=== PATIENT | female | born 1950 | race Caucasian/White ===

== ENCOUNTER 2021-01-14 07:08 | Day surgery (SDC) | payer MEDICARE, OTHER ==
[2021-01-14] MEDS ORDERED: Propofol 200 MG/20 ML SDV IV ONE (07:09)
[2021-01-14] MEDS ORDERED: Lidocaine 2% 5 ML SDV INJECT ONE (07:09)
[2021-01-14] MEDS ORDERED: Ondansetron 4 MG/2 ML SDV IVPUSH ONE (07:09)
[2021-01-14] MEDS ORDERED: Sodium Chloride 0.9% 10 ML Syringe FLUSH PRN (07:15)
[2021-01-14] MEDS ORDERED: Lactated Ringers 1,000 ML IV SCH (07:15)
--- NOTE | 2021-01-14 09:19 | PCM.HPR ---
H & P Addendum review - H & P Addendum Review Date of Original H & P: 01/01/21 Date Reviewed: 01/14/21 Time Reviewed: 08:45 Patient was Examined: No Changes
--- NOTE | 2021-01-14 09:20 | PCM.OPNOTE ---
- General Post-Op/Procedure Note Date of Surgery/Procedure: 01/14/21 Operative Procedure(s): Incomplete Colonoscopy Findings: Severe Sig tics 2 sig polyps Pre Op Diagnosis: Screening Post-Op Diagnosis: Same Anesthesia Technique: MAC Primary Surgeon: Willy Nolan Anesthesia Provider: Marifer Aparicio EBL in mLs: 0 Complications: None Condition: Good
[2021-01-14 11:46] VITALS: BP 177/92; PULSE 86
--- NOTE | 2021-01-14 12:56 | OR ---
DATE OF OPERATION: 01/14/2021 SURGEON: Willy Nolan MD PREOPERATIVE DIAGNOSIS: Colon screening. POSTOPERATIVE DIAGNOSES: 1. Severe sigmoid diverticulosis. 2. Sigmoid colon polyps. PROCEDURE: Incomplete colonoscopy to the sigmoid colon with polypectomy x2. ANESTHESIA: IV sedation. DESCRIPTION OF PROCEDURE: The patient was brought to the procedure room where she was placed on her left side and IV sedation administered. Digital rectal exam was performed which was normal. The colonoscope was inserted and advanced into a very tortuous sigmoid colon with multiple diverticula present. I was able to get to approximately 30 cm. I then changed her to the supine position and provided pressure on the abdomen and was able to advance slightly further, but was unable to get through the sigmoid colon. Upon withdrawing the scope, she had 2 polyps in her sigmoid colon located at 15 and 20 cm from the anal verge. These measured 6 to 8 mm in diameter and were pedunculated and removed with a cautery snare and retrieved in the polyp trap. Rectum was normal and retroflexion was normal. Air was removed and the scope withdrawn. The patient tolerated the procedure well and returned to Recovery in stable condition. I will offer her barium enema to evaluate the remaining colon. /[id number] RAMYA/LUCAS
== END 2021-01-14 10:35 | disposition home or self-care (01) ==
LOC: FB.SDS 07:08
PROVIDERS: ATTEND Surgery
DX: Z12.11 Encounter for screening for malignant neoplasm of colon (principal); K63.5 Polyp of colon; K57.30 Diverticulosis of large intestine without perforation or abscess without bleeding; E78.5 Hyperlipidemia, unspecified; I10 Essential (primary) hypertension; E11.9 Type 2 diabetes mellitus without complications; Z79.899 Other long term (current) drug therapy; Z88.8 Allergy status to other drugs, medicaments and biological substances
CPT/HCPCS: 00811-QZ; 00812-QZ; 88305; J2405; J2704; J7120

== ENCOUNTER 2021-04-24 10:37 | Inpatient (IN) | payer MEDICARE, OTHER ==
[2021-04-24] MEDS ORDERED: oxyCODONE 5 MG Tab PO PRN (13:22)
--- NOTE | 2021-04-24 13:29 | PCM.HP.2 ---
H&P History of Present Illness - General Date of Service: 04/24/21 Admit Problem/Dx: Admission Diagnosis/Problem Admission Diagnosis/Problem Weakness Source of Information: Patient, Old Records, Provider - History of Present Illness Initial Comments - Free Text/Narative: Paola presents for swing bed admission from [facility], she had been admitted there for large bowel obstruction in proximal sigmoid colon on 04/14, they attempted colonoscopy to open up obstruction but was unsuccessful. She underwent sigmoidectomy, end colostomy on 04/17, she is due to have trixie removed on 04/30 at [address] She has been having loose stools and surgery increased her fiber. She has been very weak. She was in ICU, required Levophed, which was discontinued on 04/20, had art line removed on 04/20 and CVC removed on 04/22. She has had nonproductive cough since her admission to [place], no fevers. She was not discharged on any antibiotics. She also was not discharged on anticoagulation. She was not receptive to ostomy cares teaching in [place] so will need education here. Discharged on Oxycodone as needed and Tylenol scheduled for pain. She has pitting edema in her legs, pulses are marked with skin marker. Having pain over midline incision/stoma. - Related Data Allergies/Adverse Reactions: Allergies Allergy/AdvReac Type Severity Reaction Status Date / Time amoxicillin [From Augmentin] Allergy Hallucinati Verified 01/14/21 08:02 ons aspirin Allergy Other Verified 01/14/21 08:02 clavulanic acid Allergy Hallucinati Verified 01/14/21 08:02 [From Augmentin] ons Home Medications: Home Meds Cholecalciferol (Vitamin D3) [Vitamin D3] 1,000 unit PO DAILY 11/20/15 [History] atorvaSTATin [Lipitor] 20 mg PO DAILY 11/20/15 [History] DULoxetine [Cymbalta] 30 mg PO BEDTIME 01/13/21 [History] metFORMIN [Glucophage XR] 500 mg PO DAILY 01/13/21 [History] Acetaminophen [Tylenol Extra Strength] 1,000 mg PO Q8H 04/24/21 [History] Calcium Phosphate Trib/Vit D3 [Calcium Gummies] 2 tab CHEW DAILY 04/24/21 [History] Melatonin 3 mg PO BEDTIME 04/24/21 [History] Multivitamin 2 tab PO DAILY 04/24/21 [History] QUEtiapine [SEROquel] 12.5 mg PO BEDTIME 04/24/21 [History] oxyCODONE 5 mg PO Q6H PRN 04/24/21 [History] Past Medical History HEENT History: Reports: Other (See Below) Other HEENT History: WEARS DENTURES Cardiovascular History: Reports: High Cholesterol, Other (See Below) Other Cardiovascular History: VARICOSE VEIN BILAT LOWER EXTREMITIES Respiratory History: Reports: None Gastrointestinal History: Reports: Diverticulosis, Other (See Below) Genitourinary History: Reports: Other (See Below) Other Genitourinary History: MARCELINA (ACUTE KIDNEY INJURY) Musculoskeletal History: Reports: Osteoarthritis, Other (See Below) Other Musculoskeletal History: CHRONIC PAIN RT KNEE Neurological History: Reports: None Psychiatric History: Reports: Depression Endocrine/Metabolic History: Reports: Obesity/BMI 30+ Hematologic History: Reports: None Immunologic History: Reports: None Oncologic (Cancer) History: Reports: None Dermatologic History: Reports: None - Past Surgical History GI Surgical History: Reports: Appendectomy, Colonoscopy Female Surgical History: Reports: None Social & Family History - Caffeine Use Caffeine Use: Reports: Coffee H&P Review of Systems - Review of Systems: Review Of Systems: See Below General: Reports: Weakness, Fatigue. Denies: Fever, Chills HEENT: Reports: No Symptoms Pulmonary: Reports: Cough. Denies: Shortness of Breath Cardiovascular: Reports: Dyspnea on Exertion, Edema. Denies: Chest Pain Gastrointestinal: Reports: Abdominal Pain, Diarrhea. Denies: Nausea, Vomiting Genitourinary: Reports: No Symptoms Musculoskeletal: Reports: No Symptoms Skin: Reports: Other (cool feet) Psychiatric: Reports: No Symptoms Neurological: Reports: No Symptoms Hematologic/Lymphatic: Reports: No Symptoms Exam - Exam Exam: See Below - Exam General: Alert, Oriented, Cooperative HEENT: PERRLA, EOMI, Hearing Intact Neck: Trachea Midline Lungs: Clear to Auscultation, Normal Respiratory Effort, Decreased Breath Sounds (bibasilar). No: Crackles, Wheezing Cardiovascular: Regular Rate, Regular Rhythm GI/Abdominal Exam: Normal Bowel Sounds, Soft, No Distention, Guarding, Tender (along incision & stoma) (Female) Exam: Deferred Rectal (Female) Exam: Normal Exam, Other (skin tag on right buttock) Back Exam: Normal Inspection Extremities: Pedal Edema (3+ BLE, pallor/cyanosis to bilateral feet, pedal arteries marked with skin marker B;) Peripheral Pulses: 1+: Posterior Tibial (L), Posterior Tibial (R), Dorsalis Pedis (L), Dorsalis Pedis (R), 2+: Brachial (R), Radial (L) Skin: Warm, Dry, Intact, Cool (feet: dusky) Neurological: Cranial Nerves Intact, Normal Speech, Normal Tone *Q Meaningful Use (ADM) - VTE Risk Assess *Q Each Risk Factor Represents 1 Point: History of prior major surgery less than 1 month Total Score 1 Point Risk Factors: 1 Each Risk Factor Represents 2 Points: Age 60 - 74 Years Total Score 2 Point Risk Factors: 2 Each Risk Factor Represents 3 Points: None Total Score 3 Point Risk Factors: 0 Each Risk Factor Represents 5 Points: None Total Score 5 Point Risk Factors: 0 Venous Thromboembolism Risk Factor Score *Q: 3 - Problem List (1) Weakness SNOMED Code(s): 48415912 ICD Code: R53.1 - WEAKNESS Status: Acute Current Visit: Yes (2) History of open sigmoidectomy SNOMED Code(s): 697773903 ICD Code: Z98.890 - OTHER SPECIFIED POSTPROCEDURAL STATES; Z90.49 - ACQUIRED ABSENCE OF OTHER SPECIFIED PARTS OF DIGESTIVE TRACT Status: Acute Current Visit: Yes Onset Date: ~04/17/21 (3) S/P colostomy SNOMED Code(s): 633267600, 447836089, 037843722 ICD Code: Z93.3 - COLOSTOMY STATUS Status: Acute Current Visit: Yes Onset Date: ~04/17/21 (4) History of obstruction of large intestine SNOMED Code(s): 205658308283775277 ICD Code: Z87.19 - PERSONAL HISTORY OF OTHER DISEASES OF THE DIGESTIVE SYSTEM Status: Acute Current Visit: Yes Onset Date: ~04/14/21 (5) Hyperlipidemia SNOMED Code(s): 60515436 ICD Code: E78.5 - HYPERLIPIDEMIA, UNSPECIFIED Status: Chronic Current Visit: Yes (6) Depression SNOMED Code(s): 50672972 ICD Code: F32.9 - MAJOR DEPRESSIVE DISORDER, SINGLE EPISODE, UNSPECIFIED Status: Chronic Current Visit: Yes (7) Insomnia SNOMED Code(s): 523295656 ICD Code: G47.00 - INSOMNIA, UNSPECIFIED Status: Chronic Current Visit: Yes (8) History of diverticulitis SNOMED Code(s): 710496391841063 ICD Code: Z87.19 - PERSONAL HISTORY OF OTHER DISEASES OF THE DIGESTIVE SYSTEM Status: Chronic Current Visit: Yes (9) Diabetes SNOMED Code(s): 54117886 ICD Code: E11.9 - TYPE 2 DIABETES MELLITUS WITHOUT COMPLICATIONS Status: Chronic Current Visit: Yes Problem List Initiated/Reviewed/Updated: Yes Orders Last 24hrs: Active Orders 24 hr Category Date Time Status Patient Status [ADT] Routine ADT 04/24/21 13:05 Active Height and Weight [RC] WEEKLY Care 04/24/21 13:05 Active Ostomy Assessment [RC] QSHIFT Care 04/24/21 13:10 Active Oxygen Therapy [RC] PRN Care 04/24/21 13:05 Active Up With Assistance [RC] ASDIRECTED Care 04/24/21 13:05 Active Up to Chair [RC] ASDIRECTED Care 04/24/21 13:05 Active VTE/DVT Education [RC] Per Unit Routine Care 04/24/21 13:05 Active Vital Signs [RC] PER UNIT ROUTINE Care 04/24/21 13:05 Active OT Evaluation and Treatment [CONS] Routine Cons 04/24/21 13:05 Active PT Evaluation and Treatment [CONS] Routine Cons 04/24/21 13:05 Active Regular Diet [DIET] Diet 04/24/21 Lunch Active Acetaminophen [Tylenol Extra Strength] Med 04/24/21 13:30 Ordered 1,000 mg PO Q8H Calcium Phosphate Trib/Vit D3 [Calcium Gummies] Med 04/25/21 09:00 Ordered 2 tab CHEW DAILY Cholecalciferol (Vitamin D3) [Vitamin D3] Med 04/25/21 09:00 Ordered 1,000 unit PO DAILY DULoxetine [Cymbalta] Med 04/24/21 21:00 Ordered 30 mg PO BEDTIME Melatonin Med 04/24/21 21:00 Ordered 3 mg PO BEDTIME Multivitamin [Multivitamin] Med 04/25/21 09:00 Ordered 2 tab PO DAILY QUEtiapine [SEROqueL] Med 04/24/21 21:00 Ordered 12.5 mg PO BEDTIME atorvaSTATin [Lipitor] Med 04/25/21 09:00 Ordered 20 mg PO DAILY metFORMIN [Glucophage XR] Med 04/25/21 09:00 Ordered 500 mg PO DAILY oxyCODONE Med 04/24/21 13:22 Ordered 5 mg PO Q6H PRN Resuscitation Status Routine Resus Stat 04/24/21 13:05 Ordered Assessment/Plan Comment:: 1. Admit to swing bed for rehab services s/p sigmoidectomy & end colostomy. 2. Weakness: PT/OT evaluate & treat. 3. S/p sigmoidectomy & colostomy: Tylenol 1000 mg po q8h and Oxycodone 5 mg po q6h as needed. Ostomy cares teaching. Trixie removed on 04/30/21 appt at 1215 at [place] [address] surgical clinic. Dietary consult for fiber intake. 4. DM: continue Metformin, on regular diet in [place]. 5. Peripheral edema: BHARATH wraps on during day and off at night. 6. Diet: Regular, dietary consulted. 7. Activity: up with assistance & up to chair. 8. CODE STATUS: FULL. 9. Discharge planning: once meets therapy goals. - Mortality Measure Prognosis:: Poor
[2021-04-24] MEDS: Acetaminophen 500 MG Tab PO SCH ×2 (15:03→21:04)
[2021-04-24] MEDS: Melatonin 3 MG Tab PO SCH (21:04)
[2021-04-24] MEDS: DULoxetine 30 MG Cap PO SCH (21:04)
[2021-04-24] MEDS: QUEtiapine 25 MG Tab PO SCH (21:04)
[2021-04-25] MEDS: Acetaminophen 500 MG Tab PO SCH ×3 (06:00→23:02)
[2021-04-25] MEDS ORDERED: Cholecalciferol (Vitamin D3) 25 MCG Tab PO SCH (09:00)
[2021-04-25] MEDS ORDERED: atorvaSTATin 20 MG Tab PO SCH (09:00)
[2021-04-25] MEDS ORDERED: metFORMIN 500 MG Tab.ER PO SCH (09:00)
[2021-04-25] MEDS ORDERED: Multivitamin Tab PO SCH (09:00)
[2021-04-25] MEDS ORDERED: Calcium Carbonate 500 MG Tablet PO SCH (09:00)
[2021-04-25] MEDS ORDERED: Enoxaparin 40 MG/0.4 ML Syringe SUBCUT SCH (10:00)
[2021-04-25] MEDS ORDERED: Ciprofloxacin in D5W 400 MG in Premix Bag 1 BAG IV ONE ×2 (19:31)
[2021-04-25] MEDS ORDERED: metroNIDAZOLE/Normal Saline 500 MG in Premix Bag 1 BAG IV ONE (19:35)
[2021-04-25] MEDS ORDERED: Iopamidol 755 Mg/ML 100 ML Bottle IV ONE (19:47)
--- NOTE | 2021-04-25 19:55 | PCM.DCSUM1 ---
Discharge Summary - Hospital Course Brief History: 70-year-old lady came to swing bed yesterday after distal colon/proximal rectum resection approximately 04/17/2021. She had a mildly elevated white blood cell count this morning but was feeling well. Over the course the day she had minimal output from her colostomy. She was feeling worse tonight and her white blood cell count elevated to greater than 17. Lactic acid 2.5. Focused sepsis exam negative. Vital signs: Blood pressure 149/93; temperature 97.7 F; pulse rate 108; respiratory rate 18; oxygen saturation 95% on room air. Contacted surgery at [place] and they accepted transfer of patient for further evaluation and possible treatment. Patient will have abdominal/pelvic CT with contrast prior to discharge/transfer to [facility]. - Discharge Data Discharge Date: 04/25/21 Discharge Disposition: DC/Tfer to Acute Hospital 02 Condition: Fair - Referral to [facility] Primary Care Physician: Kai Serna PA-C - Discharge Diagnosis/Problem(s) (1) History of obstruction of large intestine SNOMED Code(s): 126235214249637227 ICD Code: Z87.19 - PERSONAL HISTORY OF OTHER DISEASES OF THE DIGESTIVE SYSTEM Status: Acute Current Visit: Yes Onset Date: ~04/14/21 (2) History of open sigmoidectomy SNOMED Code(s): 252833928 ICD Code: Z98.890 - OTHER SPECIFIED POSTPROCEDURAL STATES; Z90.49 - ACQUIRED ABSENCE OF OTHER SPECIFIED PARTS OF DIGESTIVE TRACT Status: Acute Current Visit: Yes Onset Date: ~04/17/21 (3) S/P colostomy SNOMED Code(s): 389006532, 598952903, 262601343 ICD Code: Z93.3 - COLOSTOMY STATUS Status: Acute Current Visit: Yes Onset Date: ~04/17/21 (4) Sepsis SNOMED Code(s): 66503708 ICD Code: A41.9 - SEPSIS, UNSPECIFIED ORGANISM Status: Acute Current Visit: Yes (5) Weakness SNOMED Code(s): 82645007 ICD Code: R53.1 - WEAKNESS Status: Acute Current Visit: Yes (6) Depression SNOMED Code(s): 83327362 ICD Code: F32.9 - MAJOR DEPRESSIVE DISORDER, SINGLE EPISODE, UNSPECIFIED Status: Chronic Current Visit: Yes (7) Diabetes SNOMED Code(s): 21669734 ICD Code: E11.9 - TYPE 2 DIABETES MELLITUS WITHOUT COMPLICATIONS Status: Chronic Current Visit: Yes (8) History of diverticulitis SNOMED Code(s): 992033129375341 ICD Code: Z87.19 - PERSONAL HISTORY OF OTHER DISEASES OF THE DIGESTIVE SYSTEM Status: Chronic Current Visit: Yes (9) Hyperlipidemia SNOMED Code(s): 95796273 ICD Code: E78.5 - HYPERLIPIDEMIA, UNSPECIFIED Status: Chronic Current Visit: Yes (10) Insomnia SNOMED Code(s): 630443257 ICD Code: G47.00 - INSOMNIA, UNSPECIFIED Status: Chronic Current Visit: Yes - Patient Summary/Data Consults: Consultations 04/24/21 13:05 OT Evaluation and Treatment [CONS] Routine Please Evaluate and Treat. OT Reason for Consult: ADL's This query below is only for informational purposes and is not editable. PT Evaluation and Treatment [CONS] Routine Please Evaluate and Treat. PT Reason for Consult: Strengthening This query below is only for informational purposes and is not editable. 04/24/21 13:42 Consult to Dietary [Consult to Title Coordinator] [CONS] Routine Comment: Physician Instructions: Quantity: Reason for Consult: s/p sigmoidectomy and end colostomy - Discharge Plan *PRESCRIPTION DRUG MONITORING PROGRAM REVIEWED*: Not Applicable *COPY OF PRESCRIPTION DRUG MONITORING REPORT IN PATIENT [place]: Not Applicable Home Medications: Home Meds Cholecalciferol (Vitamin D3) [Vitamin D3] 1,000 unit PO DAILY 11/20/15 [History] atorvaSTATin [Lipitor] 20 mg PO DAILY 11/20/15 [History] DULoxetine [Cymbalta] 30 mg PO BEDTIME 01/13/21 [History] metFORMIN [Glucophage XR] 500 mg PO DAILY 01/13/21 [History] Acetaminophen [Tylenol Extra Strength] 1,000 mg PO Q8H 04/24/21 [History] Calcium Phosphate Trib/Vit D3 [Calcium Gummies] 2 tab CHEW DAILY 04/24/21 [History] Melatonin 3 mg PO BEDTIME 04/24/21 [History] Multivitamin 2 tab PO DAILY 04/24/21 [History] QUEtiapine [SEROquel] 12.5 mg PO BEDTIME 04/24/21 [History] oxyCODONE 5 mg PO Q6H PRN 04/24/21 [History] Patient Handouts: Colostomy Surgery, Adult, Care After, Fall Prevention in Hospitals, Adult, Venous Thromboembolism Prevention - Discharge Summary/Plan Comment DC Time >30 min.: Yes Total # of Minutes for Discharge Time: 50 Discharge Summary/Plan Comment: Patient will be transferred to [facility] for further evaluation and possible treatment by surgery. Patient was given CT abdomen/pelvis with contrast, ciprofloxacin 400 mg IV, Flagyl 500 mg IV. Blood cultures x2 have been started prior to administration of antibiotics. CBC, CMP, lactic acid also completed. These note that patient was given IV contrast for abdominal/pelvic CT. Please hold Metformin for 48 hours. - General Info Date of Service: 04/25/21 Admission Dx/Problem (Free Text: Admission Diagnosis/Problem Admission Diagnosis/Problem Weakness Subjective Update: Patient states that she is not feeling well. She had difficulty speaking and was not able to articulate much more than abdominal pain Functional Status: Reports: New Symptoms - Review of Systems General: Reports: Weakness HEENT: Reports: No Symptoms Pulmonary: Reports: No Symptoms Cardiovascular: Reports: No Symptoms Gastrointestinal: Reports: Abdominal Pain, Decreased Appetite Genitourinary: Reports: No Symptoms Musculoskeletal: Reports: No Symptoms Skin: Reports: No Symptoms Neurological: Reports: No Symptoms Psychiatric: Reports: No Symptoms - Patient Data Vitals - Most Recent: Last Vital Signs Temp 37.0 C 04/25/21 08:35 Pulse 115 H 04/25/21 08:35 Resp 20 04/25/21 08:35 BP 130/84 04/25/21 08:35 Pulse Ox 95 04/25/21 08:35 Weight - Most Recent: 78.953 kg Lab Results - Last 24 hrs: Laboratory Results - last 24 hr 04/25/21 04/25/21 04/25/21 Range/Units 10:30 10:30 18:50 WBC 13.3 H (3.0-10.3) x10-3/uL Corrected WBC 12.3 H (4.5-12.0) X10(3) RBC 3.34 L (3.60-5.20) x10(6)uL Hgb 10.6 L (11.4-15.5) g/dL Hct 32.0 L (34.2-48.2) % MCV 95.8 (76.7-100.5) fL MCH 31.8 (23.9-33.9) pg MCHC 33.2 (31.9-34.8) g/dL RDW 15.6 (12.3-16.5) % Plt Count 252 (151-488) x10(3)uL MPV 8.0 (7.1-12.4) fL Add Manual Diff Yes Neutrophils % (Manual) 79 (46-82) % Lymphocytes % (Manual) 18 (13-37) % Monocytes % (Manual) 3 L (4-12) % Nucleated RBCs 8 H (0-0) /100WBC Hypersegmented Neuts Few Anisocytosis Few Macrocytosis Few Sodium 149 H (135-145) mmol/L Potassium 4.1 (3.5-5.3) mmol/L Chloride 116 H* (100-110) mmol/L Carbon Dioxide 22 (21-32) mmol/L BUN 23 H (7-18) mg/dL Creatinine 1.0 (0.55-1.02) mg/dL Est Cr Clr Drug Dosing 44.56 mL/min Estimated GFR (MDRD) 55 L (>60) BUN/Creatinine Ratio 23.0 H (9-20) Glucose 136 H (80-116) mg/dL Lactic Acid 2.5 H* (0.4-2.0) mmol/L Calcium 8.6 (8.6-10.2) mg/dL 04/25/21 Range/Units 18:50 WBC 17.9 H (3.0-10.3) x10-3/uL Corrected WBC 16.0 H (4.5-12.0) X10(3) RBC 3.59 L (3.60-5.20) x10(6)uL Hgb 11.2 L (11.4-15.5) g/dL Hct 34.8 (34.2-48.2) % MCV 96.9 (76.7-100.5) fL MCH 31.3 (23.9-33.9) pg MCHC 32.3 (31.9-34.8) g/dL RDW 15.7 (12.3-16.5) % Plt Count 299 (151-488) x10(3)uL MPV 7.8 (7.1-12.4) fL Add Manual Diff Yes Neutrophils % (Manual) 76 (46-82) % Lymphocytes % (Manual) 22 (13-37) % Monocytes % (Manual) 2 L (4-12) % Nucleated RBCs 6 H (0-0) /100WBC Hypersegmented Neuts Anisocytosis Few Macrocytosis Sodium (135-145) mmol/L Potassium (3.5-5.3) mmol/L Chloride (100-110) mmol/L Carbon Dioxide (21-32) mmol/L BUN (7-18) mg/dL Creatinine (0.55-1.02) mg/dL Est Cr Clr Drug Dosing mL/min Estimated GFR (MDRD) (>60) BUN/Creatinine Ratio (9-20) Glucose (80-116) mg/dL Lactic Acid (0.4-2.0) mmol/L Calcium (8.6-10.2) mg/dL Med Orders - Current: Current Medications Acetaminophen (Acetaminophen 500 Mg Tab) 1,000 mg PO Q8H [facility] Last Admin: 04/25/21 13:32 Dose: 1,000 mg Documented by: Atorvastatin Calcium (Atorvastatin 20 Mg Tab) 20 mg PO DAILY [facility] Last Admin: 04/25/21 08:32 Dose: 20 mg Documented by: Calcium Carbonate/Glycine (Calcium Carbonate 500 Mg Tab.Chew) 1,000 mg PO DAILY [facility] Cholecalciferol (Cholecalciferol (Vitamin D3) 25 Mcg Tab) 25 mcg PO DAILY [facility] Last Admin: 04/25/21 08:33 Dose: 25 mcg Documented by: Duloxetine HCl (Duloxetine 30 Mg Cap) 30 mg PO BEDTIME [facility] Last Admin: 04/24/21 21:04 Dose: 30 mg Documented by: Enoxaparin Sodium (Enoxaparin 40 Mg/0.4 Ml Syringe) 40 mg SUBCUT DAILY [facility] Last Admin: 04/25/21 10:57 Dose: 40 mg Documented by: Ciprofloxacin/Dextrose 400 mg/ (Premix) 200 mls @ 200 mls/hr IV ONETIME ONE Stop: 04/25/21 20:30 Metronidazole 500 mg/ Premix 100 mls @ 100 mls/hr IV ONETIME ONE Stop: 04/25/21 20:34 Melatonin (Melatonin 3 Mg Tab) 3 mg PO BEDTIME [facility] Last Admin: 04/24/21 21:04 Dose: 3 mg Documented by: Metformin HCl (Metformin 500 Mg Tab) 500 mg PO WITHBREAKFAST [facility] Multivitamins/Minerals/Vitamin C (Multivitamin Tab) 2 tab PO DAILY [facility] Last Admin: 04/25/21 08:32 Dose: 2 tab Documented by: Oxycodone HCl (Oxycodone 5 Mg Tab) 5 mg PO Q6H PRN PRN Reason: MODERATE PAIN Last Admin: 04/25/21 16:50 Dose: 5 mg Documented by: Quetiapine Fumarate (Quetiapine 25 Mg Tab) 12.5 mg PO BEDTIME [facility] Last Admin: 04/24/21 21:04 Dose: 12.5 mg Documented by: Discontinued Medications Calcium Carbonate/Glycine (Calcium Carbonate 500 Mg Tablet) 1,000 mg PO DAILY [facility] Last Admin: 04/25/21 08:32 Dose: 1,000 mg Documented by: Iopamidol (Iopamidol 755 Mg/Ml 100 Ml Bottle) 100 ml IV . DIRECTED ONE Stop: 04/25/21 19:48 Metformin HCl (Metformin 500 Mg Tab.Er) 500 mg PO DAILY [facility] Last Admin: 04/25/21 08:32 Dose: 500 mg Documented by: Comments:: When I entered the room to check on the patient she was laying in bed with her hands folded over the top of her abdomen. She looked tired. She had difficulty speaking. She expressed abdominal pain and general malaise - Exam Quality Assessment: Reports: Supplemental Oxygen, DVT Prophylaxis General: Reports: Alert, Oriented, Mild Distress HEENT: Reports: EOMI Lungs: Reports: Other (Ear to auscultation anterior) Cardiovascular: Reports: Regular Rate, Regular Rhythm, No Murmurs GI/Abdominal Exam: Distended, Tender. No: Abnormal Bowel Sounds Extremities: Pedal Edema Skin: Reports: Warm, Dry, Intact Neurological: Reports: No New Focal Deficit Psy/Mental Status: Reports: Anxious, Depressed
[2021-04-25] MEDS: DULoxetine 30 MG Cap PO SCH (20:41)
[2021-04-25] MEDS: QUEtiapine 25 MG Tab PO SCH (20:42)
[2021-04-25] MEDS: Melatonin 3 MG Tab PO SCH (20:42)
--- NOTE | 2021-04-25 21:08 | PCM.SN.2 ---
- Free Text/Narrative Note: pt d/w sampson Villareal at [phone] at his request at 8:50p he was at bedside at 2p and did not think his mother "looked good," says she was mumbling at the time hospitalist Dr Joyce spoke with me at 8:20p and said that EMS was en route for transfer to [facility], that pt had an acute abd pt had abd surgery 8d ago, had been on a swing bed, had WBC 14k this AM and 17k this PM pt returned from CT of abd/pelvis at ~8:15p, radiology report still pending, on prelim ED read of CT there appears to be a large amount of free air as well as ascites alb 1.5 at bedside pt with 2+ pretib edema b/l and symmetric, abd distention with guard/rebound, eyes closed, HR 105-110 and regular RN reports cipro is almost done and metronidazole is about to be hung pt from [place], sampson Villareal lives in [place], he is going to steel pickler pt's in [place] and drive to [facility], talk to surgeons in [place] is aware that pt's situation is critical and life threatening, that she will likely go to surgery tonight ASSESS acute abd with free air c/w dehiscence at surgery site, radiology reading pending low albumen ascites critical PLAN sampson Villareal aware, pt did converse with me prior to transfer and indicated understanding of her situation Time Documentation
[2021-04-25 22:50] VITALS: BP 149/93; PULSE 108
[2021-04-26] MEDS ORDERED: metFORMIN 500 MG Tab PO SCH (08:00)
[2021-04-26] MEDS ORDERED: Calcium Carbonate 500 MG Tab.Chew PO SCH (09:00)
== END 2021-04-25 21:30 | DRG 948 ==
LOC: FB.MS 12:51
PROVIDERS: ADMIT Family Medicine; ATTEND Student in an Organized Health Care Education/Training Program
DX: R53.1 Weakness (principal); T81.31XA Disruption of external operation (surgical) wound, not elsewhere classified, initial encounter; R18.8 Other ascites; F32.9 Major depressive disorder, single episode, unspecified; E11.9 Type 2 diabetes mellitus without complications; E78.5 Hyperlipidemia, unspecified; G47.00 Insomnia, unspecified; E78.00 Pure hypercholesterolemia, unspecified; E66.9 Obesity, unspecified; Z98.890 Other specified postprocedural states; Z90.49 Acquired absence of other specified parts of digestive tract; Z87.19 Personal history of other diseases of the digestive system; Z93.3 Colostomy status; Z88.0 Allergy status to penicillin; Z79.82 Long term (current) use of aspirin; Z79.899 Other long term (current) drug therapy; Z68.29 Body mass index [BMI] 29.0-29.9, adult
CPT/HCPCS: 36415; 74177; 80048; 80053; 83605; 85025; 87040; 97161-GP; 97165-GO; 97530-GP; A9270-GY; J0744; J1650; J3490; Q9967